=== PATIENT | male | born 1945 | race Caucasian/White ===

== ENCOUNTER 2017-07-18 12:56 | Outpatient (CLI) ==
[2017-07-18 13:59] LABS: BASOPHILS # (AUTO) 0.1 K/uL (0-0.2); BASOPHILS % (AUTO) 0.9 % (0.0-3.0); EOSINOPHILS # (AUTO) 0.2 K/ul (0.0-0.7); EOSINOPHILS % (AUTO) 2.2 % (0.0-7.0); HEMATOCRIT 41.4 % (42.0-52.0); HEMOGLOBIN 13.6 g/dl (14.0-18.0); IMMATURE GRANULOCYTE % (AUTO) 0.4 % (0.0-5.0); LYMPHOCYTES # (AUTO) 1.1 K/uL (0.60-3.4); LYMPHOCYTES % (AUTO) 14.1 (10.0-50.0); MEAN CORPUSCULAR HEMOGLOBIN 28.8 pg (27.0-31.0); MEAN CORPUSCULAR HGB CONC 32.9 (31.8-35.4); MEAN CORPUSCULAR VOLUME 87.5 fl (80.0-94.0); MONOCYTES # (AUTO) 0.7 K/uL (0.4-2.0); MONOCYTES % (AUTO) 9.7 (0-10); NEUTROPHILS # (AUTO) 5.6 K/ul (2.0-6.9); NEUTROPHILS % (AUTO) 72.7; PLATELET COUNT 217 10^3/uL (140-440); RED BLOOD COUNT 4.73 10^6/ul (4.70-6.10); WHITE BLOOD COUNT 7.65 K/ul (4.2-10.2)
--- NOTE | 2017-07-18 14:46 | CT ---
EXAM: CT abdomen pelvis with contrast HISTORY: Abdominal pain, abnormal liver function COMPARISON: 03/30/2007 TECHNIQUE: CT abdomen pelvis performed with intravenous contrast. Coronal and sagittal reformatted images obtained. FINDINGS: There are numerous pulmonary nodules throughout the visualized lungs, greater than 30 in n umber. Nodules measure up to 1.0 cm No free air. No acute abnormalities of the bones. No suspicious lytic or blastic lesions identified. Degenerative change in the spine. Numerous new liver masses, approximating 10 in number. For example a mass in the central liver on image 25 measures 2.8 cm and a mass in the left lobe of the liver image 22 measures 2.0 cm. Moderate intrahepatic biliary duct d ilation. There is a gallstone. There is a cystic and solid mass in the pancreatic tail measuring 6. 5 x 6.6 cm on image 32. Mass is predominately cystic with peripheral solid components and small calc ification. There is wedge-shaped hypo attenuation in the peripheral spleen. Adrenals appear normal. Sub centimeter hypodensity in the left kidney to small to characterize. No hydronephrosis. Aorta normal in caliber with atherosclerosis. Small bilateral fat containing inguinal hernias. Bladder un remarkable. Prostate normal in size. There is conglomerate césar hepatic and portacaval lymphadenop athy with largest conglomerate region measuring 4.4 x 3.9 cm on image 31. Small hiatal hernia. No b owel obstruction. Colonic diverticulosis. Status post right hemicolectomy. Calcified mesenteric ly mph nodes present. IMPRESSION: 1. 6.6 cm cystic and solid malignant appearing mass in the pancreatic tail. 2. Numerous liver masses, consistent with metastasis. 3. Numerous pulmonary nodules in the incompletely lungs, consistent with metastasis. 4. Conglomerate césar hepatic/portacaval lymphadenopathy, also likely metastatic. 5. Moderate intrahepatic biliary duct dilation is likely secondary to lymphadenopathy. 6. Wedge-shaped hypo attenuation in the peripheral spleen that probably represents an age indetermin ate splenic infarction. Less likely differential considerations include phase of contrast enhancemen t differential and metastatic lesion. Unexpected finding: #1 through #6 are unexpected findings
[2017-07-18 15:36] LABS: ALBUMIN 3.6 g/dL (3.4-5.0); ALBUMIN/GLOBULIN RATIO 0.9; ANION GAP 18.9; BILIRUBIN,TOTAL 1.4 mg/dL (0.00-1.20); BUN/CREATININE RATIO 17.8; CALCIUM 9.5 mg/dL (8.2-10.2); CREATININE 0.73 mg/dL (0.60-1.10); POTASSIUM 3.9 mmol/L (3.5-5.1); TOTAL PROTEIN 7.6 g/dL (5.8-8.1)
== END 2017-07-18 12:57 | disposition home or self-care (01) ==
LOC: RAD 12:56
PROVIDERS: ATTEND Internal Medicine
DX: R94.5 Abnormal results of liver function studies (principal); R10.9 Unspecified abdominal pain
CPT/HCPCS: 36415; 80053; 85025; 85610

== ENCOUNTER 2017-07-21 12:30 | Outpatient (CLI) ==
--- NOTE | 2017-07-21 13:38 | CT ---
EXAM: CT of the chest with contrast History: Liver metastasis and lung nodules. Comparison: CT abdomen pelvis 07/18/2017 Technique: Multiplanar CT images through the thorax were obtained following administration of IV con trast. Findings: Heart size is normal. Coronary calcifications. No axillary adenopathy. 2.1 cm prevascul ar mediastinal lymph node with necrotic center. No hilar lymphadenopathy. Numerous bilateral lung n odules with the largest right lung nodule measuring 1 cm in the right upper lobe and the largest left lung nodule measuring 0.8 cm in the left lower lobe. No pleural fluid and no pneumothorax. Mild em physema. For details in the upper abdomen, please see recent dedicated abdominal CT which demonstrates liver metastasis and pancreatic lesions. There is also upper abdominal lymphadenopathy. No acute osseous abnormalities. Impression: 1. Bilateral metastatic pulmonary nodules. 2. Metastatic mediastinal lymphadenopathy. 3. Coronary artery disease. 4. Mild emphysema. 5. Metastatic findings in the upper abdomen.
== END 2017-07-21 12:31 | disposition home or self-care (01) ==
LOC: RAD 12:30
PROVIDERS: ATTEND Internal Medicine
DX: R93.5 Abnormal findings on diagnostic imaging of other abdominal regions, including retroperitoneum (principal); C78.7 Secondary malignant neoplasm of liver and intrahepatic bile duct

== ENCOUNTER 2017-08-06 08:15 | Outpatient (CLI) ==
--- NOTE | 2017-08-06 10:03 | MRI ---
EXAM: MRI brain without and with IV contrast. DATE: 06 August 2017. HISTORY: Adenocarcinoma of gastrointestinal origin. Concern for brain metastases. TECHNIQUE: Sagittal T1W pre and postcontrast, axial T2W, axial FLAIR, axial T1W pre and postcontrast , axial DWI, coronal T1W postcontrast, and coronal T2W GRE sequences of the brain were obtained using 1.2 Ana María magnet. CONTRAST: Omniscan - 15 ml IV. COMPARISON: CT head 29 March 2009. FINDINGS: The ventricles are normal in size and configuration. Many frontal and parietal lobe sulci are somewhat prominent due to involutional change. No midline shift, mass effect or abnormal extra- axial fluid collection is apparent. DWI B-1000 subtle 2-3 mm hyperintense foci in the right paramidl ine andrew and midbrain are likely normal variation, and are not bright enough to indicate acute infarc ts. No distinct acute infarct, hemorrhage or enhancing neoplasm is identified. No abnormal contrast enhancement is identified in the brain, meninges or dura. Minimal T2W/FLAIR hyperintensity is obser liliya in the white matter abutting the anterior horn and body of each lateral ventricle. A few 2-6 mm, T2W/FLAIR bright, non-enhancing foci are scattered in the georges radiata and subcortical white matte r bilaterally. The granado - white matter differentiation is normal. T2W GRE black, 5.2 x 6.1 mm focus in the region of pineal gland corresponds with benign calcification on previous CT scan. No migrati on or diverticulation abnormality is identified. The amygdala, hippocampus, and parahippocampal gyri are similar bilaterally. The 7th/8th cranial nerve complexes, cerebellopontine angles, and visible cervical spinal cord are normal. There is no cerebellar tonsillar ectopia. The pituitary gland is n ormal in size. A 2.4 x 2.7 mm hypoenhancing focus is identified in the posterior pituitary gland. C orpus callosum is normal in size and configuration. Flow voids are present in the major intracranial arteries and in the dural venous sinuses. No aneurysm, AVM or dural venous sinus thrombosis is appa rent. No orbit abnormality is identified. The mastoid air cells are unremarkable. There is no acut e sinusitis. A T2W/T1W intermediate signal, mildly enhancing, 9 mm focus at the superomedial aspect of left maxillary sinus is likely a polyp. No neck mass or lymphadenopathy is detected. No calvaria l neoplasm or acute fracture is evident. IMPRESSIONS: 1. No acute infarct, hemorrhage, enhancing neoplasm or hydrocephalus. 2. Left basal ganglia minor, benign mineral deposition. 3. Minimal supratentorial small vessel disease. 4. Minor cerebral involutional change / atrophy. 5. Left maxillary sinus small polyp (9 mm). 6. Posterior pituitary hypoenhancing 2.7 mm focus. DDX: Microadenoma, inclusion cyst, Rathke's lorena ft cyst. Metastatic disease is unlikely.
== END 2017-08-06 08:16 | disposition home or self-care (01) ==
LOC: RAD 08:15
PROVIDERS: ATTEND Internal Medicine Hematology & Oncology
DX: C82.90 Follicular lymphoma, unspecified, unspecified site (principal)

== ENCOUNTER 2017-09-01 19:49 | Inpatient (IN) ==
[2017-09-01] MEDS ORDERED: SODIUM CHLORIDE 1,000 ML IV STA (19:57)
--- NOTE | 2017-09-01 20:30 | ED.PDOC ---
General ED Provider: Dr. KB WILEY-ER Chief Complaint: Non-specific Complaint Stated Complaint: sent by dr parker--hx of pancreatitic cancer with large mets--not eating or drinking--dr russell said not a candidate for tx--is being set up for hospice tomorrow--sent here for fluids Time Seen by Physician: 20:29 Mode of Arrival: Walk-In Information Source: Patient, Family Exam Limitations: No limitations Primary Care Provider: CELSA BOLDEN Nursing and Triage Documentation Reviewed and Agree: Yes Reviewed sepsis parameters & appropriate labs ordered?: Yes System Inflammatory Response Syndrome: Not Applicable Sepsis Protocol: For patient's 13 years and over: Temp is 96.8 and below OR 101 and greater Pulse >90 BPM Resp >20/minute Acutely Altered Mental Status Are patient's symptoms suggestive of a new infection, such as: -Pneumonia -Skin, Soft Tissue -Endocarditis -UTI -Bone, Joint Infection -Implantable Device -Acute Abdominal Infection -Wound Infection -Meningitis -Blood Stream Catheter Infection -Unknown GI Complaint Exam - Abdominal Pain Complaint/Exam Onset: Gradual Duration: several days Symptoms Are: Still present Timing: Constant Initial Severity: Mild Current Severity: Mild Location of Pain: Diffuse Radiates To: Reports: Back Character: Reports: Dull, Aching Associated Signs and Symptoms: Reports: Decreased appetite, Nausea. Denies: Diaphoresis, Fever, Cough, Chest pain, Dizziness, Back pain, Constipation, Blood in stool, Dysuria, Urinary frequency, Decreased urine output, Discharge, Vomiting, Diarrhea Abdominal Findings: Present: Abdominal distention Prostate Exam: Nontender Differential Diagnoses: Constipation, Pancreatitis, Other Review of Systems - Review Of Systems Constitutional: Reports: No symptoms Eyes: Reports: No symptoms Ears, Nose, Mouth, Throat: Reports: No symptoms Respiratory: Reports: No symptoms Cardiac: Reports: No symptoms GI: Reports: Nausea, Poor appetite, Poor fluid intake : Reports: No symptoms Musculoskeletal: Reports: No symptoms Skin: Reports: No symptoms Neurological: Reports: No symptoms Endocrine: Reports: No symptoms Hematologic/Lymphatic: Reports: No symptoms All Other Systems: Reviewed and Negative Past Medical History - Past Medical History Previously Healthy: No Endocrine: Reports: Unknown Cardiovascular: Reports: Unknown Respiratory: Reports: Unknown Hematological: Reports: Unknown Gastrointestinal: Reports: Unknown Genitourinary: Reports: Unknown Neuro/Psych: Reports: Unknown Musculoskeletal: Reports: Unknown Cancer: Reports: Other (metastatic pancreatic) - Surgical History General Surgical History: Reports: Unknown - Family History Family History: Reports: Unknown - Social History Smoking Status: Never smoker Hx Substance Use: No Alcohol Screening: None Lives: With family - Immunizations Tetanus Shot up to Date: No (UNSURE) Physical Exam - Physical Exam Appearance: Ill-appearing, Thin, Cachectic Ill-appearing: Mild Pain Distress: Mild Eyes: KELLEN, EOMI, Conjunctiva clear ENT: Ears normal, Nose normal, Oropharynx normal Neck: Supple Respiratory: Airway patent, Breath sounds clear, Breath sounds equal, Respirations nonlabored Cardiovascular: RRR, Pulses normal, No rub, No murmur GI/: Soft, No masses, Bowel sounds normal Musculoskeletal: Normal strength, ROM intact, No edema, No calf tenderness Skin: Warm, Dry, Normal color Neurological: Sensation intact, Motor intact, Reflexes intact, Cranial nerves intact, Alert, Oriented Psychiatric: Affect appropriate, Mood appropriate Physician Notification - Case Discussed Physician Notified: dr bolden Time of Notification: 20:31 Critical Care Note - Critical Care Note Total Time (mins): 0 Course - Course Orders, Labs, Meds: Orders Category Date Time Status ED IV/MEDIPORT/POWERPORT .ONCE EMERGENCY 09/01/17 19:57 Active CBC W/ AUTO DIFF Stat LAB 09/01/17 20:05 Received COMPREHENSIVE METABOLIC PANEL Stat LAB 09/01/17 20:05 Received URINALYSIS C & S IF INDICATED Stat LAB 09/01/17 19:57 Uncollected 0.9 % Sodium Chloride [Saline Flush] MEDS 09/01/17 19:57 Ordered 1 syr IVF PRN PRN Sodium Chloride 0.9% [Sodium Chloride] 1,000 ml MEDS 09/01/17 19:57 Active IV BOLUS Medications Generic Name Dose Route Start Last Admin Trade Name Freq PRN Reason Stop Dose Admin Sodium Chloride 1,000 mls @ 1,000 mls/hr 09/01/17 19:57 09/01/17 20:14 Sodium Chloride IV 09/01/17 20:56 1,000 mls/hr BOLUS STA Administration Sodium Chloride 1 syr 09/01/17 19:57 09/01/17 20:14 Saline Flush IVF 1 syr PRN PRN Administration To flush IV Vital Signs: Temp Pulse Resp BP Pulse Ox 09/01/17 20:02 97.5 F L 104 H 20 64/47 L 90 L Departure - Departure Time of Disposition: 20:31 Disposition: ADMITTED INPATIENT Discharge Problem: Dehydration, Pancreatic carcinoma metastatic to liver Condition: Poor Pt referred to PMD for follow-up: Yes IPMP verified?: No Allergies/Adverse Reactions: Allergies No Known Allergies Allergy (Unverified 09/01/17 20:08) Home Medications: Ambulatory Orders 1 [Unobtainable] 09/01/17 Disposition Discussed With: Patient, Family
[2017-09-01] MEDS ORDERED: MORPHINE 2 MG/ML SYRINGE IVP PRN (20:34)
[2017-09-01] MEDS ORDERED: ZOFRAN 4 MG/2 ML IVP STA (20:34)
[2017-09-01] MEDS ORDERED: MORPHINE 2 MG/ML SYRINGE IVP STA (20:46)
[2017-09-01] MEDS ORDERED: SODIUM CHLORIDE 1,000 ML IV SCH (21:00)
[2017-09-01] MEDS: MORPHINE 2 MG/ML SYRINGE IVP PRN (22:25)
[2017-09-01 22:58] VITALS: BMI 25.2
[2017-09-01] MEDS: SODIUM CHLORIDE 1,000 ML IV SCH (23:35)
[2017-09-02] MEDS: MORPHINE 2 MG/ML SYRINGE IVP PRN ×3 (00:34→05:28)
[2017-09-02] MEDS: SODIUM CHLORIDE 1,000 ML IV SCH ×2 (06:50→16:23)
[2017-09-02] MEDS ORDERED: ZOFRAN 4 MG/2 ML IVP PRN (09:07)
[2017-09-02] MEDS: MORPHINE 2 MG/ML SYRINGE IVP SCH ×3 (09:17→13:14)
--- NOTE | 2017-09-02 11:43 | PCM.PROG ---
Attending Provider: ATTENDING PROVIDER: Dr. CELSA COLLAZO This patient is seen with Jocelyn Babin, Nurse Practitioner. DATE OF SERVICE: 09/02/17 SUBJECTIVE: This 71 year old WHITE/ M was hospitalized 09/01/17. The patient is resting comfortably. is present. The patient seems to be end-stage pancreatic cancer. The family is ready for hospice care. REVIEW OF SYSTEMS: CONSTITUTIONAL: Generalized weakness. No night sweats. No malaise, lethargy. No fever or chills. HEENT: Eyes: No visual changes. No eye pain. No eye discharge. ENT: No runny nose. No epistaxis. No sinus pain. No odynophagia. No congestion. RESPIRATORY: No cough, no congestion. No hemoptysis. No shortness of breath. CARDIOVASCULAR: No angina symptoms. No CHF symptoms. No atypical chest pain for CAD. No palpitations. No orthopnea.. GASTROINTESTINAL: No abdominal pain. No nausea or vomiting. No diarrhea or constipation. No hematemesis. No hematochezia. GENITOURINARY: No urgency. No frequency. No dysuria. No hematuria. No obstructive symptoms. No discharge. No pain. No significant abnormal bleeding. MUSCULOSKELETAL: Generalized pain. NEUROLOGICAL: Awake, alert, oriented to time, place and person. No headache. No neck pain. No syncope. No seizures. No dizziness. PSYCHIATRIC: Not anxious. No depression. No suicidal thoughts. No homicidal thoughts. SKIN: No rash. No lesions. No wounds. ENDOCRINE: No unexplained weight loss. No weight gain. HEMATOLOGIC/LYMPHATIC: No anemia. No purpura. No petechiae. No prolonged or excessive bleeding. No palpable lymph nodes. PHYSICAL EXAMINATION: GENERAL: The patient is lying in bed in no distress, pale. VITAL SIGNS: Temperature 97.6 F, Pulse 87, Respiratory Rate 20, BP 60/0, Pulse Ox 94% HEENT: Head normocephalic, atraumatic. Eyes: Extraocular muscles are intact. Pupils are equal, round and reactive to light and accommodation. Ears: No lesions. Nose appeared normal. Throat: No exudate or erythema. NECK: Supple. No JVD, no carotid bruit. No lymphadenopathy or thyromegaly. LUNGS: Diminished breath sounds. Clear to auscultation. Percussion note normal. Chest symmetrical. HEART: S1, S2, no S3. No murmurs. No cyanosis or clubbing. No ascites. Pulses: Dorsalis pedis and posterior tibial pulses +1 to +2 both sides. ABDOMEN: Soft. Non-tender. Bowel sounds active. No CVA tenderness. No mass felt. EXTREMITIES: No edema. Full range of motion of all extremities, equal. NEUROLOGIC: No focal deficit. Cranial nerves II through XII are grossly intact. No headache, no double vision or headache. SKIN: Not dry. Intact. Turgor-normal. LYMPHATIC: No palpable lymph nodes/no lymphedema. MUSCULOSKELETAL: Normal joints with no swelling. Muscle tone is normal. LAB REVIEW: 09/02/17 06:55 09/02/17 06:55 09/02/17 06:55: Sodium 129 L, Potassium 5.5 H, Chloride 92 L, Carbon Dioxide 17 L, Anion Gap 25.5, BUN 62 H*, Creatinine 5.08 H*, Estimated GFR (MDRD) 11.00, BUN/Creatinine Ratio 12.20, Glucose 89, Calcium 7.5 L, Total Bilirubin 4.2 H, AST 209 H D, ALT 128 H, Alkaline Phosphatase 1018 H D, Total Protein 5.2 L, Albumin 1.7 L, Globulin 3.5, Albumin/Globulin Ratio 0.49 09/02/17 06:55: WBC 36.08 H, RBC 3.64 L, Hgb 10.6 L, Hct 31.3 L, MCV 86.0, MCH 29.1, MCHC 33.9, RDW Coeff of Abimael 15.5 H, Plt Count 24 L* D, Neutrophils % ( Manual) 81.0 H, Band Neutrophils % 4.0, Lymphocytes % (Manual) 3.0 L, Metamyelocytes % 6.0 H, Myelocytes % 6.0 H, Anisocytosis Not present ASSESSMENT: 1. DEHYDRATION 2. PANCREATIC CANCER WITH METASTASIS 3. HISTORY OF FOLLICULAR LYMPHOMA PLAN: 1. Continue IV fluids 2. Hospice care 3. Zofran q. 6hr p.r.n. Plan and coordination of the patient's care discussed in the presence of Distillery Manager and nurse. CONDITION: Poor PROGNOSIS: Poor SCRIBED BY: Genaro LEIGH scribed while in presence of service performed by Dr. Collazo/Jocelyn Babin APRN on 09/02/17 ([id number])
[2017-09-02] MEDS ORDERED: LEVSIN PO PRN (14:52)
[2017-09-02] MEDS: ROXANOL 20 MG/ML PO PRN ×4 (15:43→23:08)
[2017-09-03] MEDS: ROXANOL 20 MG/ML PO PRN ×5 (04:03→21:11)
--- NOTE | 2017-09-03 08:50 | PCM.PROG ---
Attending Provider: ATTENDING PROVIDER: Dr. CELSA COLLAZO DATE OF SERVICE: 09/03/17 SUBJECTIVE: This 71 year old WHITE/ M was hospitalized 09/01/17 with acute renal failure and dehydration. The patient's condition has deteriorated with severe Thrombocytopenia. Creatinine and BUN has gone up now 5 and 62 yesterday. No more lab were done as patient is on Hospice. is in the room and the patient doesn't seem to be in pain or distress. Appetite is poor. REVIEW OF SYSTEMS: CONSTITUTIONAL: No night sweats. No fatigue, malaise, lethargy. No fever or chills. HEENT: Eyes: No visual changes. No eye pain. No eye discharge. ENT: No runny nose. No epistaxis. No sinus pain. No odynophagia. No congestion. RESPIRATORY: No cough, no congestion. No hemoptysis. No shortness of breath. CARDIOVASCULAR: No angina symptoms. No CHF symptoms. No atypical chest pain for CAD. No palpitations. No orthopnea.. GASTROINTESTINAL: No abdominal pain. No nausea or vomiting. No diarrhea or constipation. No hematemesis. No hematochezia. GENITOURINARY: No urgency. No frequency. No dysuria. No hematuria. No obstructive symptoms. No discharge. No pain. No significant abnormal bleeding. MUSCULOSKELETAL: No musculoskeletal pain; no joint swelling. NEUROLOGICAL: Awake, alert, oriented to time, place and person. No headache. No neck pain. No syncope. No seizures. No dizziness. PSYCHIATRIC: Not anxious. No depression. No suicidal thoughts. No homicidal thoughts. SKIN: No rash. No lesions. No wounds. ENDOCRINE: No unexplained weight loss. No weight gain. HEMATOLOGIC/LYMPHATIC: No anemia. No purpura. No petechiae. No prolonged or excessive bleeding. No palpable lymph nodes. PHYSICAL EXAMINATION: GENERAL: The patient is awake, alert and oriented to person and place. VITAL SIGNS: Temperature 97.5 F, Pulse 74, Respiratory Rate 18, BP 67/48, Pulse Ox 94% HEENT: Head normocephalic, atraumatic. Eyes: Extraocular muscles are intact. Pupils are equal, round and reactive to light and accommodation. Ears: No lesions. Nose appeared normal. Throat: No exudate or erythema. NECK: Supple. No JVD, no carotid bruit. No lymphadenopathy or thyromegaly. LUNGS: Decreased breath sounds. Percussion note normal. Chest symmetrical. HEART: S1, S2, no S3. No murmurs. No cyanosis or clubbing. No ascites. Pulses: Dorsalis pedis and posterior tibial pulses +1 to +2 both sides. ABDOMEN: Soft. Non-tender. Bowel sounds active. No CVA tenderness. No mass felt. EXTREMITIES: No edema. Full range of motion of all extremities, equal. NEUROLOGIC: No focal deficit. Cranial nerves II through XII are grossly intact. No headache, no double vision or headache. SKIN: Warm and dry. Intact. Turgor-normal. LYMPHATIC: No palpable lymph nodes/no lymphedema. MUSCULOSKELETAL: Normal joints with no swelling. Muscle tone is normal. LAB REVIEW: 09/02/17 06:55 09/02/17 06:55 09/02/17 06:55: Neutrophils % (Manual) 81.0 H, Band Neutrophils % 4.0, Lymphocytes % (Manual) 3.0 L, Metamyelocytes % 6.0 H, Myelocytes % 6.0 H, Anisocytosis Not present ASSESSMENT: Please see below. Pancreatic cancer with metastasis Acute renal failure Severe Thrombocytopenia Hypertension History of lymphoma PLAN: Comfort measure through Hospice Plan and coordination of the patient's care discussed in the presence of Management Trainer and nurse. CONDITION: Poor SCRIBED BY: Genaro MONTOYA scribed while in presence of service performed by Dr. CELSA COLLAZO on 09/03/17 ([id number])
[2017-09-03] MEDS ORDERED: ATIVAN INTENSOL PO PRN (14:41)
[2017-09-03 18:08] VITALS: TEMP 97.6
[2017-09-04] MEDS: ROXANOL 20 MG/ML PO PRN ×4 (00:20→12:42)
[2017-09-04] MEDS: SODIUM CHLORIDE 1,000 ML IV SCH (03:39)
[2017-09-04 10:17] VITALS: BP 64/38
[2017-09-04] MEDS: TRANSDERM-SCOP 1.5 MG PATCH TD SCH ×2 (11:03→14:50)
--- NOTE | 2017-09-04 11:23 | HP ---
DATE OF SERVICE: 09/02/17 REASON FOR HOSPITALIZATION/HISTORY OF PRESENT ILLNESS: 71 year old male who was recently diagnosed with pancreatic cancer a few month ago with metastasis to the lungs. His condition has steadily declined. He had seen Dr. Hodge on the and said that he was dehydrated and wanted him to be sent here for IV fluids. PAST MEDICAL HISTORY: Dyslipidemia Hypertension GERD Osteoarthritis Hyperglycemia History of lymphoma which has been followed by Dr. Hodge COPD Systolic murmur grade I/ Pancreatic tail tumor with metastasis to liver and lungs. PAST SURGICAL HISTORY: Biliary stent placed 08/13/17 in [place] REVIEW OF SYSTEMS: CONSTITUTIONAL: No night sweats. Fatigue and malaise. No fever or chills. Generalized weakness. HEENT: Eyes: No visual changes. No eye pain. No eye discharge. ENT: No runny nose. No epistaxis. No sinus pain. No sore throat. No odynophagia. No ear pain. No congestion. RESPIRATORY: No cough, no congestion. No hemoptysis. No shortness of breath. CARDIOVASCULAR: No angina symptoms. No CHF symptoms. No atypical chest pain for CAD. No palpitations. No orthopnea. GASTROINTESTINAL: Abdominal pain. Nausea. No diarrhea or constipation. No hematemesis. No hematochezia. Decreased appetite. Poor fluid intake. GENITOURINARY: No urgency. No frequency. No dysuria. No hematuria. No obstructive symptoms. No discharge. No pain. No significant abnormal bleeding. MUSCULOSKELETAL: No musculoskeletal pain. No joint swelling. No arthritis. NEUROLOGICAL: No headache. No neck pain. No syncope. No seizures. No dizziness. PSYCHIATRIC: Not anxious. No depression. No suicidal thoughts. No homicidal thoughts. SKIN: No rash. No lesions. No wounds. ENDOCRINE: No unexplained weight loss. No weight gain. HEMATOLOGIC/LYMPHATIC: No anemia. No purpura. No petechiae. No prolonged or excessive bleeding. No palpable lymph nodes. PERSONAL/FAMILY/SOCIAL HISTORY: The patient lives with . He denies any alcohol or illicit drug use. He is a nonsmoker and he quit smoking years ago. MEDICATIONS: Prilosec 20mg daily Lisinopril 20mg twice a day which has been held due to low blood pressure Bystolic 5mg which is also been held at home Orange 7.5-325 three times a day PRN Zofran 4mg three times a day PRN Fentanyl patch ALLERGIES: No known allergies PHYSICAL EXAMINATION: GENERAL: Ill appearing, thin with mild pain and distress. Drowsy. The patient is alert and oriented to person. VITAL SIGNS: Temperature 97.5, heart 104, respiratory 20,blood pressure 64/47 and pulse ox 90%. HEENT: Head normocephalic, atraumatic. Eyes: Extraocular muscles are intact. Pupils are equal, round and reactive to light and accommodation. Ears: No lesions. Nose appeared normal. Throat: No exudate or erythema. NECK: Supple. No JVD, no carotid bruit. No lymphadenopathy or thyromegaly. LUNGS: Diminished breath sounds bilaterally. Nonlabored. Percussion note normal. Chest symmetrical. HEART: S1, S2, no S3. No murmurs. No cyanosis or clubbing. No ascites. Pulses: Dorsalis pedis and posterior tibial pulses +1 to +2 both sides. ABDOMEN: Soft. Nontender. Bowel sounds active. No CVA tenderness. No mass felt. EXTREMITIES: No edema. Full range of motion of all extremities, equal. NEUROLOGIC: No focal deficit. Cranial nerves II through XII are grossly intact. No headache, no double vision or headache. SKIN: Not dry. Intact. Turgor - normal. LYMPHATIC: No palpable lymph nodes/no lymphedema. MUSCULOSKELETAL: Normal joints with no swelling. Muscle tone is normal. LABS: Sodium 128, potassium 5.1, BUN 56, creatinine 4.66, glucose 63, total bilirubin 4.2, AST 265, ALT 149, total protein 6.1, Albumin 2.0, Globulin 4.1, Alkaline phosphatase 1,195, WBC 33.99, RBC 4.01, hgb 11.7, hct 34.2, plt count 37,000 ASSESSMENT: 1. Dehydration 2. Pancreatic cancer with liver and lung metastasis 3. Hypotension 4. Acute renal failure PLAN: 1. Admit to the floor 2. IV fluids of 125cc an hour 3. Hold of blood pressure medication 4. CBC and CMP daily 5. Will consult Hospice care per patient and 's request 6. Routine telemetry orders 7. Morphine 2mg IV Q 2 hours PRN for pain 8. Zofran 4mg Q 6 hours IV PRN for nausea PROGNOSIS: Poor TIME SPENT: More than 70 minutes. MTDD
[2017-09-04] MEDS: MORPHINE 2 MG/ML SYRINGE IVP PRN ×2 (13:13→20:22)
[2017-09-05] MEDS: MORPHINE 2 MG/ML SYRINGE IVP PRN (07:39)
--- NOTE | 2017-09-05 09:06 | PCM.PROG ---
Time of : 08:52 (no heart or breath sounds noted )
--- NOTE | 2017-09-05 09:15 | PCM.PROG ---
Attending Provider: ATTENDING PROVIDER: Dr. CELSA COLLAZO DATE OF SERVICE: 09/05/17 SUBJECTIVE: This 71 year old WHITE/ M was hospitalized 09/01/17. The patient is hospitalized with dehydration and the patient has pancreatic cancer with metastasis and is on Hospice. The respiratory sounds are congested. The family declined suctioning. The patient has besides mets with pancreatic cancer, acute renal failure. REVIEW OF SYSTEMS: CONSTITUTIONAL: Fatigue, weakness. No night sweats. No fever or chills. HEENT: Eyes: No visual changes. No eye pain. No eye discharge. ENT: No runny nose. No epistaxis. No sinus pain. No odynophagia. No congestion. RESPIRATORY: No cough, no congestion. No hemoptysis. No shortness of breath. CARDIOVASCULAR: No angina symptoms. No CHF symptoms. No atypical chest pain for CAD. No palpitations. No orthopnea.. GASTROINTESTINAL: No abdominal pain. No nausea or vomiting. No diarrhea or constipation. No hematemesis. No hematochezia. GENITOURINARY: No urgency. No frequency. No dysuria. No hematuria. No obstructive symptoms. No discharge. No pain. No significant abnormal bleeding. MUSCULOSKELETAL: No musculoskeletal pain; no joint swelling. NEUROLOGICAL: Resting comfortably. No headache. No neck pain. No syncope. No seizures. No dizziness. PSYCHIATRIC: Not anxious. No depression. No suicidal thoughts. No homicidal thoughts. SKIN: No rash. No lesions. No wounds. ENDOCRINE: No unexplained weight loss. No weight gain. HEMATOLOGIC/LYMPHATIC: No anemia. No purpura. No petechiae. No prolonged or excessive bleeding. No palpable lymph nodes. PHYSICAL EXAMINATION: GENERAL: The patient is resting comfortably in bed in no distress. VITAL SIGNS: Temperature 97.6 F, Pulse 80, Respiratory Rate 7, BP 64/38, Pulse Ox 94% HEENT: Head normocephalic, atraumatic. Eyes: Extraocular muscles are intact. Pupils are equal, round and reactive to light and accommodation. Ears: No lesions. Nose appeared normal. Throat: No exudate or erythema. NECK: Supple. No JVD, no carotid bruit. No lymphadenopathy or thyromegaly. LUNGS: Distant heart sounds with a lot of wheezing. Percussion note normal. Chest symmetrical. HEART: S1, S2, no S3. No murmurs. No cyanosis or clubbing. No ascites. Pulses: Dorsalis pedis and posterior tibial pulses +1 to +2 both sides. ABDOMEN: Soft. Non-tender. Bowel sounds active. No CVA tenderness. No mass felt. EXTREMITIES: No edema. Full range of motion of all extremities, equal. NEUROLOGIC: No focal deficit. Cranial nerves II through XII are grossly intact. No headache, no double vision or headache. SKIN: Warm and dry. Intact. Turgor-normal. LYMPHATIC: No palpable lymph nodes/no lymphedema. MUSCULOSKELETAL: Normal joints with no swelling. Muscle tone is normal. LAB REVIEW: 09/02/17 06:55 09/02/17 06:55 ASSESSMENT: Pancreatic CA with mets and acute renal failure. The patient is end-stage with hypotension, systolic blood pressure of 64. Family in the room. Prognosis is poor. PLAN: Continue current plan of care. Plan and coordination of the patient's care discussed in the presence of Finished Stock Inspector and nurse. PROGNOSIS: Poor. SCRIBED BY: DERICK AVILES Poultry Hatchery Manager scribed while in presence of service performed by Dr. CELSA COLLAZO on 09/05/17 ([id number])
--- NOTE | 2017-09-05 13:20 | PN ---
DATE OF SERVICE: 09/02/17 SUBJECTIVE: The patient was hospitalized with dehydration, acute renal failure. The patient has end-stage pancreatic cancer with metastasis to the liver. He is on hospice now. is in the room and discussed the case in detail about his terminal illness and hospice management. I put him on Roxanol sublingual. He doesn't have any appetite. He barely opens his mouth. He recognized me. PHYSICAL EXAMINATION: GENERAL: The patient doesn't seem to be in any distress. HEENT: Head normocephalic, atraumatic. Eyes: Extraocular muscles are intact. Pupils are equal, round and reactive to light and accommodation. Ears: No lesions. Nose appeared normal. Throat: No exudate or erythema. NECK: Supple. No JVD, no carotid bruit. No lymphadenopathy or thyromegaly. LUNGS: Decreased breath sounds. Clear to auscultation. Percussion note normal. Chest symmetrical. HEART: S1, S2, no S3. No murmurs. No cyanosis or clubbing. No ascites. Pulses: Dorsalis pedis and posterior tibial pulses +1 to +2 both sides. ABDOMEN: Soft. Nontender. Bowel sounds active. No CVA tenderness. No mass felt. EXTREMITIES: No edema. Full range of motion of all extremities, equal. NEUROLOGIC: No focal deficit. Cranial nerves II through XII are grossly intact. No headache, no double vision or headache. SKIN: Not dry. Intact. Turgor - normal. LYMPHATIC: No palpable lymph nodes/no lymphedema. MUSCULOSKELETAL: Normal joints with no swelling. Muscle tone is normal. ASSESSMENT: CA OF THE PANCREAS WITH METASTASIS HISTORY OF LYMPHOMA END-STAGE ON HOSPICE CARE TIME SPENT: More than 30 minutes. Plan and coordination of the patient's care discussed in the presence of nurse. ALEE
--- NOTE | 2017-09-10 11:19 | PN ---
DATE OF SERVICE: 09/04/17 SUBJECTIVE: The patient has end-stage pancreatic cancer with metastasis. The patient's blood pressure is low. He has shallow breathing. He is responding to verbal stimulus but otherwise sleepy. The family is in the room. PHYSICAL EXAMINATION: GENERAL: The patient does not seem to be in distress. HEENT: Head normocephalic, atraumatic. Eyes: Extraocular muscles are intact. Pupils are equal, round and reactive to light and accommodation. Ears: No lesions. Nose appeared normal. Throat: No exudate or erythema. NECK: Supple. No JVD, no carotid bruit. No lymphadenopathy or thyromegaly. LUNGS: Shallow breathing with decreased breath sounds. Clear to auscultation. Percussion note normal. Chest symmetrical. HEART: S1, S2, no S3. Distant. No murmurs. No cyanosis or clubbing. No ascites. Pulses: Dorsalis pedis and posterior tibial pulses +1 to +2 both sides. ABDOMEN: Soft. Nontender. Bowel sounds active. No CVA tenderness. No mass felt. EXTREMITIES: No edema. Full range of motion of all extremities, equal. NEUROLOGIC: No focal deficit. Cranial nerves II through XII are grossly intact. No headache, no double vision or headache. SKIN: Not dry. Intact. Turgor - normal. LYMPHATIC: No palpable lymph nodes/no lymphedema. MUSCULOSKELETAL: Normal joints with no swelling. Muscle tone is normal. PLAN: 1. Supportive measures and comfort measures. The patient is on hospice. TIME SPENT: More than 15 minutes with the family. Plan and coordination of the patient's care discussed in the presence of nurse. ALEE
--- NOTE | 2017-09-12 13:33 | DS ---
DATE OF SERVICE: 09/05/17 - DATE OF CAUSE OF : CA OF THE PANCREAS WITH METASTASIS OTHER DIAGNOSES: FOLLICULAR LYMPHOMA CHRONIC LUNG DISEASE HYPERTENSION OBESITY DYSLIPIDEMIA ACUTE RENAL FAILURE ANEMIA THROMBOCYTOPENIA DISCHARGE INSTRUCTIONS: [facility] was contacted for transport of body. MEDICATIONS AT DISCHARGE: N/A NEW PRESCRIPTIONS: N/A DIET INSTRUCTIONS: N/A ACTIVITY: N/A SMOKING: N/A DISEASE SPECIFIC EDUCATION: N/A HOSPITAL COURSE: 71-year-old white male who was being followed for his medical conditions along with lymphoma developed some abdominal symptoms and on further workup, patient had CA of the pancreas with metastasis to the liver and possibly to the lungs. The patient was referred to senior analyst developer/oncologist for further treatment with chemotherapy was discussed with the patient by senior analyst developer/oncologist. The patient in the meantime continued to worsen, became anemic, thromocytopenic. The patient was dehydrated and went into acute renal failure. IV fluids were given with practically no response to IV fluids. The patient was mostly sleepy and drowsy. During the last two days of his life he was put on Hospice. The patient on 09/05/17. TIME SPENT: More than 60 minutes. MTDD
== END 2017-09-05 11:18 | disposition expired | DRG 436 ==
LOC: ED 19:49 → MEDSURG A 21:16
PROVIDERS: ADMIT Internal Medicine; ATTEND Internal Medicine
DX: C25.2 Malignant neoplasm of tail of pancreas (principal); C78.7 Secondary malignant neoplasm of liver and intrahepatic bile duct; C78.00 Secondary malignant neoplasm of unspecified lung; C82.90 Follicular lymphoma, unspecified, unspecified site; N17.9 Acute kidney failure, unspecified; R09.2 Respiratory arrest; I95.9 Hypotension, unspecified; D64.9 Anemia, unspecified; D69.6 Thrombocytopenia, unspecified; E86.0 Dehydration; R63.0 Anorexia; R11.0 Nausea; R53.1 Weakness; J44.9 Chronic obstructive pulmonary disease, unspecified; E66.9 Obesity, unspecified; E78.5 Hyperlipidemia, unspecified
CPT/HCPCS: 36415; 80053; 85007; 85025; 96360; 96375; 99223; 99232; 99239; 99284; 99285